=== PATIENT | female | born 1955 | race Two or more races ===

== ENCOUNTER → 2018-07-03 | Outpatient (CLI) | payer OTHER | END | disposition home or self-care (01) | LOC: RADPV 09:44 | PROVIDERS: ATTEND Legal Medicine | DX: I11.9 Hypertensive heart disease without heart failure (principal); I70.90 Unspecified atherosclerosis ==

== ENCOUNTER → 2018-08-14 | Outpatient (CLI) | payer OTHER | END | disposition home or self-care (01) | LOC: RADMN 09:22 | PROVIDERS: ATTEND Legal Medicine | DX: F03.90 Unspecified dementia, unspecified severity, without behavioral disturbance, psychotic disturbance, mood disturbance, and anxiety (principal); I11.9 Hypertensive heart disease without heart failure | CPT/HCPCS: 70551 ==